=== PATIENT | female | born 1970 | race American Indian/Alaskan Native ===

== ENCOUNTER 2017-01-05 11:38 | Outpatient (CLI) | payer OTHER ==
--- NOTE | 2017-01-05 15:38 | Mammography Report ---
BILATERAL DIGITAL SCREENING MAMMOGRAM with CAD: 01/05/17 11:38:00 CLINICAL: Routine screening. COMPARISON:12/21/15 FINDINGS: The breasts are commonly fatty with stable bilateral residual retroareolar fibroglandular densities. No mass, architectural distortion or suspicious calcifications. IMPRESSION: No mammographic evidence of malignancy. BI-RADS CATEGORY: 1 - - Negative RECOMMENDATION: Routine mammographic screening in one year. COMMENT: Patient follow-up letters are generated by our [employer] application.
== END 2017-01-05 11:39 | disposition home or self-care (01) ==
LOC: SPVIMAG 11:38
DX: Z12.31 Encounter for screening mammogram for malignant neoplasm of breast (principal)
CPT/HCPCS: 77067; G0202